=== PATIENT | male | born 1950 | race Caucasian/White ===

== ENCOUNTER → 2018-01-18 14:38 | Outpatient (CLI) | payer MEDICARE, BC, SELFPAY ==
[2018-01-18 15:26] LABS: Add Manual Diff / Slide Review NO; Basophils Percent Auto 0.3 % (0-2); Eosinophils Percent Auto 0.4 % (2-4); Hematocrit 45.2 % (41-53); Lymphocytes Percent Auto 19.1 % (25-40); Mean Corpuscular HGB Conc 33.1 % (30-36); Mean Corpuscular Hemoglobin 28.1 PG (26-34); Mean Corpuscular Volume 84.9 fL (80-100); Monocytes Percent Auto 8.9 % (3-14); Neutrophils Absolute Auto 5700 /uL (3000-5900); Neutrophils Percent Auto 71.3 % (50-75); Platelet Count 505 X10^3/uL (150-400); Red Blood Cell Count 5.32 X10^6/uL (4.5-5.9); Red Cell Distribution Width 17.2 % (11.6-14.8)
[2018-01-18 15:43] LABS: Alanine Aminotransferase 58 IU/L (21-72); Albumin 4.6 g/dL (3.5-5.0); Albumin Globulin Ratio 1.1 (1.0-2.8); Alkaline Phosphatase 102 U/L (38-126); Aspartate Aminotransferase 71 IU/L (17-59); BUN Creatinine Ratio 24.4 (6-22); Bilirubin Total 0.6 mg/dL (0.2-1.3); Blood Urea Nitrogen 22 mg/dL (9-20); Calcium 9.2 mg/dL (8.4-10.2); Carbon Dioxide 32 mmol/L (22-32); Chloride 97 mmol/L (98-107); Estimated Glomerular Filt Rate > 60.0 mL/min (>60); Globulin 4.3 g/dL (1.7-4.1); Glucose 114 mg/dL (80-110); HEMOLYSIS 20 (0-50); Potassium 4.1 mmol/L (3.4-5.1); Sodium 143 mmol/L (137-145); Total Protein 8.9 g/dL (6.3-8.2)
[2018-01-18 16:13] LABS: Thyroid Stimulating Hormone 2.92 uIU/mL (0.47-4.68)
== END ==
PROVIDERS: PCP Internal Medicine; Visit Provider Internal Medicine Medical Oncology
DX: C64.9 Malignant neoplasm of unspecified kidney, except renal pelvis (principal)
CPT/HCPCS: 36415; 80053; 84443; 85025

== ENCOUNTER → 2018-03-29 13:40 | Outpatient (CLI) | payer MEDICARE, BC, SELFPAY ==
--- NOTE | 2018-03-29 | DI.CT.S_ITS ---
PROCEDURE: CT CHEST WO CON INDICATIONS: Malignant neoplasm of unspecified kidney, except r TECHNIQUE: Noncontrast 5 mm thick sections acquired from the pulmonary apices to the posterior costophrenic angles. 7 mm thick coronal and sagittal MIP reformats were then acquired. For radiation dose reduction, the following was used: automated exposure control, adjustment of mA and/or kV according to patient size. COMPARISON: [facility], MR, ABDOMEN WITHOUT, 04/12/2011, 19:49. [facility], CT, THORAX WITHOUT CONTRAST, 03/30/2011, 8:18. FINDINGS: Image quality: Excellent. Lungs and pleura: There is a new large right pleural effusion. No pneumothorax. There is significant right lung volume loss. There is a 66 mm diameter mass within the right mid/lower medially. Within the right mid lung, there is a perihilar 63 mm diameter mass. Previously seen left apical mass has increased in size, currently measuring 32 mm diameter. A few smaller left lung nodules are present. Central and peripheral airways are patent and normal in caliber. Mediastinum: Heart size is normal. No pericardial effusion. 14 mm short axis prevascular adenopathy. 19 mm short axis right hilar adenopathy. Thoracic aorta and central pulmonary arteries are normal in size. Esophagus is normal in caliber. No hiatal hernia. Bones and chest wall: No suspicious bony lesions. No vertebral body compression fractures. No axillary or supraclavicular adenopathy by size criteria. Thyroid gland is within normal limits. Abdomen: Visualized portions of the upper abdomen demonstrate multiple surgical clips adjacent to the superior pole left kidney, as well as several calcific mass is adjacent to the remaining superior pole left kidney spanning roughly 16 mm. IMPRESSION: 1. Progressive bilateral right greater than left pulmonary masses. 2. Large right pleural effusion. 3. Progressive mediastinal and right hilar adenopathy. 4. Status post presumed left superior pole renal wedge resection. Multiple calcific masses adjacent to the remaining left kidney are present, which may represent postsurgical sequelae, or recurrent neoplasm. Dictated by: Mónica Hernández M.D. on 03/29/2018 at 14:03 Approved by: Mónica Hernández M.D. on 03/29/2018 at 14:09
== END ==
PROVIDERS: Family Provider Internal Medicine; PCP Internal Medicine; Visit Provider Internal Medicine Medical Oncology
DX: C64.9 Malignant neoplasm of unspecified kidney, except renal pelvis (principal); R91.8 Other nonspecific abnormal finding of lung field; J90 Pleural effusion, not elsewhere classified; R59.0 Localized enlarged lymph nodes
CPT/HCPCS: 71250

== ENCOUNTER → 2018-04-04 12:49 | Outpatient (CLI) | payer MEDICARE, BC, SELFPAY ==
--- NOTE | 2018-04-04 | DI.RAD.S_ITS ---
PROCEDURE: XR CHEST 2V INDICATIONS: Followup right pleural effusion. TECHNIQUE: 2 views of the chest were acquired. COMPARISON: [facility], CT, BIOPSY LUNG, 04/14/2011, 9:48. [facility], CR, CHEST 1 VIEW, 04/14/2011, 13:41. [facility], CT, CT CHEST WO CON, 03/29/2018, 13:46. FINDINGS: Surgical changes and devices: None. Lungs and pleura: There is moderate right pleural effusion, minimally changed from 03/29/2018. Right lung opacities in right upper lobe are suspicious for masses, pneumonia or atelectasis. No pneumothorax. Mediastinum: Mediastinal contours are normal. Heart size is normal. Bones and chest wall: No suspicious bony abnormalities. Soft tissues appear unremarkable. IMPRESSION: 1. Stable moderate-sized right effusion. 2. Right lung opacities may be masses, pneumonia or atelectasis Dictated by: Elizabeth Arevalo M.D. on 04/04/2018 at 15:37 Approved by: Elizabeth Arevalo M.D. on 04/04/2018 at 15:41
== END ==
PROVIDERS: Family Provider Internal Medicine; PCP Internal Medicine; Visit Provider Internal Medicine Medical Oncology
DX: J90 Pleural effusion, not elsewhere classified (principal)
CPT/HCPCS: 71046

== ENCOUNTER → 2018-04-10 12:40 | Outpatient (CLI) | payer MEDICARE, BC, SELFPAY ==
--- NOTE | 2018-04-10 | DI.RAD.S_ITS ---
PROCEDURE: XR CHEST 1V INDICATIONS: post thorocentesis TECHNIQUE: One view of the chest was acquired. COMPARISON: [facility], CR, XR CHEST 2V, 04/04/2018, 12:35. FINDINGS: Surgical changes and devices: None. Lungs and pleura: Residual moderate right pleural effusion is seen with loculated appearance. There is adjacent atelectasis. Left lung appears grossly clear. No pneumothorax Mediastinum: Mediastinal contours appear normal. Heart size is normal. Bones and chest wall: No suspicious bony lesions. Overlying soft tissues appear unremarkable. Scoliosis is noted. Bilateral shoulder joint degeneration. IMPRESSION: No pneumothorax status post right-sided thoracentesis. Dictated by: Landon Martinez M.D. on 04/10/2018 at 17:12 Approved by: Landon Martinez M.D. on 04/10/2018 at 17:13
--- NOTE | 2018-04-10 | DI.US.S_ITS ---
PROCEDURE: US THORACENTESIS INDICATIONS: RIGHT PLEURAL EFFUSION TECHNIQUE: The indications, alternatives, benefits, risks, and complications of the procedure were explained to the patient. Written informed consent was obtained and placed in the chart. The chest was examined sonographically, and an appropriate site was chosen for thoracentesis. The skin was prepared and draped in the usual sterile fashion, and 1% lidocaine was infiltrated from the skin down through the pleural surface. A 19-gauge catheter-covered needle was then introduced into the pleural space, the catheter was advanced and the needle was withdrawn, and thereafter pleural fluid was aspirated. The catheter was then removed and a dressing was applied. COMPARISON: None. FINDINGS: Access site: Right hemithorax. Needle: One-Step centesis catheter with introducer needle. Fluid volume and description: 1800 cc of serosanguineous fluid was obtained Fluid sent for diagnostic testing: Not requested Medications: 1% lidocaine for local anaesthesia. Complications: None; post-procedural chest radiograph is pending to assess for pneumothorax. IMPRESSION: Successful ultrasound-guided thoracentesis. Dictated by: Landon Martinez M.D. on 04/10/2018 at 17:25 Approved by: Landon Martinez M.D. on 04/10/2018 at 17:26
== END ==
PROVIDERS: Family Provider Internal Medicine; PCP Internal Medicine; Visit Provider Nurse Practitioner Family
DX: J90 Pleural effusion, not elsewhere classified (principal)
CPT/HCPCS: 32555; 71045

== ENCOUNTER → 2018-04-18 10:05 | Outpatient (CLI) | payer MEDICARE, BC, SELFPAY ==
--- NOTE | 2018-04-18 | DI.RAD.S_ITS ---
PROCEDURE: XR CHEST 1V INDICATIONS: POST THORACENTESIS TECHNIQUE: One view of the chest was acquired. COMPARISON right upper lobe. [facility], CT, CT CHEST WO CON, 03/29/2018, 13:46. [facility], CR, XR CHEST 1V, 04/10/2018, 15:10. FINDINGS: Surgical changes and devices: None. Lungs and pleura: No pneumothorax. There is moderate residual right pleural effusion. Right basilar consolidation or atelectasis. A nodular density is noted in the right upper lung zone. Mediastinum: Mediastinal contours appear normal. Heart size is normal. Bones and chest wall: No suspicious bony lesions. Overlying soft tissues appear unremarkable. IMPRESSION: No pneumothorax post thoracentesis. Dictated by: Elizabeth Arevalo M.D. on 04/18/2018 at 12:52 Approved by: Elizabeth Arevalo M.D. on 04/18/2018 at 12:54
--- NOTE | 2018-04-18 | DI.US.S_ITS ---
PROCEDURE: US THORACENTESIS INDICATIONS: RIGHT PLEURAL EFFUSION TECHNIQUE: The indications, alternatives, benefits, risks, and complications of the procedure were explained to the patient. Written informed consent was obtained and placed in the chart. The chest was examined sonographically, and an appropriate site was chosen for thoracentesis. The skin was prepared and draped in the usual sterile fashion, and 1% lidocaine was infiltrated from the skin down through the pleural surface. A 19-gauge catheter-covered needle was then introduced into the pleural space, the catheter was advanced and the needle was withdrawn, and thereafter pleural fluid was aspirated. The catheter was then removed and a dressing was applied. COMPARISON: [facility], THORACENTESIS, 04/10/2018, 14:35. FINDINGS: Access site: Right hemithorax. Needle: One-Step centesis catheter with introducer needle. Fluid volume and description: 1850 mL, bloody Fluid sent for diagnostic testing: not requested. Medications: 1% lidocaine for local anaesthesia. Complications: None; post-procedural chest radiograph is pending to assess for pneumothorax. IMPRESSION: Successful ultrasound-guided thoracentesis. Dictated by: Elizabeth Arevalo M.D. on 04/18/2018 at 15:35 Approved by: Elizabeth Arevalo M.D. on 04/18/2018 at 15:36
== END ==
PROVIDERS: Family Provider Internal Medicine; PCP Internal Medicine; Visit Provider Physician Assistant Medical
DX: J90 Pleural effusion, not elsewhere classified (principal)
CPT/HCPCS: 32555; 71045

== ENCOUNTER → 2018-04-25 10:11 | Outpatient (CLI) | payer MEDICARE, BC, SELFPAY ==
--- NOTE | 2018-04-25 | DI.US.S_ITS ---
PROCEDURE: US THORACENTESIS INDICATIONS: RIGHT PLEURAL EFFUSION TECHNIQUE: The indications, alternatives, benefits, risks, and complications of the procedure were explained to the patient. Written informed consent was obtained and placed in the chart. The chest was examined sonographically, and an appropriate site was chosen for thoracentesis. The skin was prepared and draped in the usual sterile fashion, and 1% lidocaine was infiltrated from the skin down through the pleural surface. A 19-gauge catheter-covered needle was then introduced into the pleural space, the catheter was advanced and the needle was withdrawn, and thereafter pleural fluid was aspirated. The catheter was then removed and a dressing was applied. COMPARISON: [facility], THORACENTESIS, 04/10/2018, 14:35. FINDINGS: Access site: Right hemithorax. Needle: One-Step centesis catheter with introducer needle. Fluid volume and description: 1400 mL, blood-tinged. Fluid sent for diagnostic testing: Not requested. Medications: 1% lidocaine for local anaesthesia. Complications: None; post-procedural chest radiograph is pending to assess for pneumothorax. IMPRESSION: Successful ultrasound-guided thoracentesis. Dictated by: Elizabeth Arevalo M.D. on 04/25/2018 at 11:16 Approved by: Elizabeth Arevalo M.D. on 04/25/2018 at 11:17
--- NOTE | 2018-04-25 | DI.RAD.S_ITS ---
PROCEDURE: XR CHEST 1V INDICATIONS: POST THORACENTEIS TECHNIQUE: One view of the chest was acquired. COMPARISON: [facility], CT, THORAX WITHOUT CONTRAST, 03/30/2011, 8:18. [facility], CR, CHEST 1 VIEW, 04/14/2011, 13:41. [facility], CT, CT CHEST WO CON, 03/29/2018, 13:46. [facility], CR, XR CHEST 1V, 04/10/2018, 15:10. [facility], CR, XR CHEST 1V, 04/18/2018, 10:57. FINDINGS: Surgical changes and devices: None. Lungs and pleura: There is a small to moderate residual right pleural effusion. No pneumothorax. Again noted are masslike opacity in the right upper lobe. Mediastinum: Mediastinal contours appear normal. Heart size is normal. Bones and chest wall: No suspicious bony lesions. Overlying soft tissues appear unremarkable. IMPRESSION: No pneumothorax post thoracentesis. Dictated by: Elizabeth Arevalo M.D. on 04/25/2018 at 11:45 Approved by: Elizabeth Arevalo M.D. on 04/25/2018 at 11:46
== END ==
PROVIDERS: Family Provider Internal Medicine; PCP Internal Medicine; Visit Provider Internal Medicine Medical Oncology
DX: J90 Pleural effusion, not elsewhere classified (principal)
CPT/HCPCS: 32555; 71045

== ENCOUNTER → 2018-05-18 09:32 | Outpatient (CLI) | payer MEDICARE, BC, SELFPAY ==
--- NOTE | 2018-05-18 | DI.RAD.S_ITS ---
PROCEDURE: XR CHEST 1V INDICATIONS: POST CHEST THORACENTESIS TECHNIQUE: One view of the chest was acquired. COMPARISON: [facility], , XR CHEST 1V, 04/25/2018, 10:43. FINDINGS: Surgical changes and devices: None. Lungs and pleura: No pleural effusions or pneumothorax. There is widespread right lung consolidation and [id number] pleural effusion which is unchanged since 04/25/18. Left lung appears clear. Mediastinum: Mediastinal contours appear normal. Heart size is normal. Bones and chest wall: Scoliosis and discogenic changes. Upper abdominal surgical clips. IMPRESSION: No pneumothorax, status post right thoracentesis. Dictated by: Landon Martinez M.D. on 05/18/2018 at 14:40 Approved by: Landon Martinez M.D. on 05/18/2018 at 14:41
--- NOTE | 2018-05-18 | DI.US.S_ITS ---
PROCEDURE: US THORACENTESIS INDICATIONS: RIGHT PLEURAL EFFUSION TECHNIQUE: The indications, alternatives, benefits, risks, and complications of the procedure were explained to the patient. Written informed consent was obtained and placed in the chart. The chest was examined sonographically, and an appropriate site was chosen for thoracentesis. The skin was prepared and draped in the usual sterile fashion, and 1% lidocaine was infiltrated from the skin down through the pleural surface. A 19-gauge catheter-covered needle was then introduced into the pleural space, the catheter was advanced and the needle was withdrawn, and thereafter pleural fluid was aspirated. The catheter was then removed and a dressing was applied. COMPARISON: [facility], THORACENTESIS, 04/25/2018, 10:35. FINDINGS: Access site: Right hemithorax. Needle: One-Step centesis catheter with introducer needle. Fluid volume and description: 1050 cc of serous fluid was obtained Fluid sent for diagnostic testing: Not requested Medications: 1% lidocaine for local anaesthesia. Complications: None; post-procedural chest radiograph is pending to assess for pneumothorax. IMPRESSION: Successful ultrasound-guided thoracentesis. Dictated by: Landon Martinez M.D. on 05/18/2018 at 16:36 Approved by: Landon Martinez M.D. on 05/18/2018 at 16:36
[2018-05-18 10:07] LABS: Platelet Count 312 X10^3/uL (150-400)
[2018-05-18 10:14] LABS: INR 1.2 (0.9-1.3); Prothrombin Time 13.2 SECONDS (10.1-12.7)
== END ==
PROVIDERS: Family Provider Internal Medicine Medical Oncology; PCP Internal Medicine; Visit Provider Physician Assistant Medical
DX: J90 Pleural effusion, not elsewhere classified (principal)
CPT/HCPCS: 32555; 36415; 71045; 85049; 85610

== ENCOUNTER → 2018-06-06 12:45 | Outpatient (CLI) | payer MEDICARE, BC, SELFPAY ==
--- NOTE | 2018-06-06 | DI.US.S_ITS ---
PROCEDURE: US THORACENTESIS INDICATIONS: RIGHT PLEURAL EFFUSION TECHNIQUE: The indications, alternatives, benefits, risks, and complications of the procedure were explained to the patient. Written informed consent was obtained and placed in the chart. The chest was examined sonographically, and an appropriate site was chosen for thoracentesis. The skin was prepared and draped in the usual sterile fashion, and 1% lidocaine was infiltrated from the skin down through the pleural surface. A 19-gauge catheter-covered needle was then introduced into the pleural space, the catheter was advanced and the needle was withdrawn, and thereafter pleural fluid was aspirated. The catheter was then removed and a dressing was applied. COMPARISON: [facility], THORACENTESIS, 04/18/2018, 10:25. [facility], THORACENTESIS, 04/10/2018, 14:35. [facility], THORACENTESIS, 05/18/2018, 10:45. [facility], , XR CHEST 1V, 05/18/2018, 11:09. [facility], XR CHEST 1V, 04/25/2018, 10:43. [facility], THORACENTESIS, 04/25/2018, 10:35. FINDINGS: Access site: right hemithorax. Needle: One-Step centesis catheter with introducer needle. Fluid volume and description: Right pleural effusion is loculated on ultrasound. ~250 mL, pinkish. Fluid sent for diagnostic testing: not requested. Medications: 1% lidocaine for local anaesthesia. Complications: None; post-procedural chest radiograph is pending to assess for pneumothorax. IMPRESSION: 1. Ultrasound-guided thoracentesis is successful. There is decreased volume of pleural fluid removal due to loculation. The effectiveness of repeat thoracentesis may have limited due to loculation. Dictated by: Elizabeth Arevalo M.D. on 06/06/2018 at 15:20 Approved by: Elizabeth Arevalo M.D. on 06/06/2018 at 15:26
--- NOTE | 2018-06-06 | DI.RAD.S_ITS ---
PROCEDURE: XR CHEST 1V INDICATIONS: POST THORACENTESIS TECHNIQUE: One view of the chest was acquired. COMPARISON: [facility], CR, XR CHEST 2V, 04/04/2018, 12:35. [facility], CR, XR CHEST 1V, 04/10/2018, 15:10. [facility], CR, XR CHEST 1V, 04/18/2018, 10:57. [facility], CR, XR CHEST 1V, 04/25/2018, 10:43. [facility], US, US THORACENTESIS, 06/06/2018, 12:55. [facility], CT, CT CHEST WO CON, 03/29/2018, 13:46. [facility], CR, XR CHEST 1V, 05/18/2018, 11:09. FINDINGS: Surgical changes and devices: None. Lungs and pleura: The right hemithorax is near entirely opacified likely secondary to large. right pleural effusions. A small hydropneumothorax component at the right base. There is a pleural-based density in the left upper thorax. Left lungs is otherwise clear. Mediastinum: Mediastinal contours appear normal. Heart size is normal. Bones and chest wall: No suspicious bony lesions. Overlying soft tissues appear unremarkable. IMPRESSION: 1. Persistent large right effusion and a small hydropneumothorax component in the right lung base. No evidence for tension pneumothorax. I discussed with the patient and his caregiver that if he develops shortness of breath, he is advised to come to the ER immediately. The patient lives a short distance from the hospital. He appears to be in his usual condision. He is discharged from the hospital in stable condition. Dictated by: Elizabeth Arevalo M.D. on 06/06/2018 at 13:48 Transcribed by: RICHARD on 06/06/2018 at 13:53 Approved by: Elizabeth Arevalo M.D. on 06/06/2018 at 14:05
== END ==
PROVIDERS: Family Provider Internal Medicine Medical Oncology; PCP Internal Medicine; Visit Provider Physician Assistant Medical
DX: J90 Pleural effusion, not elsewhere classified (principal)
CPT/HCPCS: 32555; 71045

== ENCOUNTER → 2018-06-22 09:03 | Outpatient (CLI) | payer MEDICARE, BC, SELFPAY ==
--- NOTE | 2018-06-22 | DI.US.S_ITS ---
PROCEDURE: US CHEST COMPARISON: [facility], [facility], CT THORAX/ABDOMEN/PELVIS WITH CONTRAST, 06/14/2018, 10:32. [facility], CR, XR CHEST 1V, 06/06/2018, 13:36. [facility], US, US THORACENTESIS, 06/06/2018, 12:55. [facility], CR, XR CHEST 1V, 05/18/2018, 11:09. [facility], US, US THORACENTESIS, 05/18/2018, 10:45. [facility], CR, XR CHEST 1V, 04/25/2018, 10:43. [facility], , US THORACENTESIS, 04/25/2018, 10:35. INDICATIONS: RIGHT PLEURAL EFFUSION FINDINGS: Patient was initially scheduled for an ultrasound-guided thoracentesis for drainage of a known right complex malignant pleural effusion. Preprocedural ultrasound of the right hemithorax demonstrates a multiloculated fluid collection with echogenic septations at the right lung base extending to the right hemidiaphragm. These echogenic septations are increased from comparison preprocedural thoracentesis ultrasound of 06/06/18 and are not as detectable on comparison CT of the thorax, abdomen, and pelvis of 06/14/18. Patient states that he did not experience any significant improvement in respiratory status after his prior ultrasound-guided thoracentesis of 06/06/18 (where 250 mL of fluid was removed). There has been a decreasing trend in volume of right pleural fluid removed, with 1400 mL of fluid removed on 04/25/18, 1050 mL of fluid removed on 05/18/18, and 250 mL of fluid removed on 06/06/2018. IMPRESSION: Increasing loculation/septation of the known complex malignant right pleural effusion. Given this increasing loculation, the amount of pleural fluid that could be removed by thoracentesis is likely similar to the volume removed on most recent prior thoracentesis of 06/06/18. These findings were discussed with the patient at the time of the exam. The patient states he did not experience any significant improvement in respiratory status after the thoracentesis of 06/06/18. As such, the patient chooses to defer ultrasound guided thoracentesis at this time. Patient is scheduled for a followup ultrasound guided thoracentesis at this location on 06/26/18, at which time the pleural fluid collection will be reevaluated for potential thoracentesis. Dictated by: Pipe Quigley M.D. on 06/22/2018 at 12:08 Approved by: Pipe Quigley M.D. on 06/22/2018 at 12:22
[2018-06-22 09:50] LABS: INR 1.3 (0.9-1.3); Prothrombin Time 13.9 SECONDS (10.1-12.7)
[2018-06-22 09:51] LABS: Platelet Count 322 X10^3/uL (150-400)
== END ==
PROVIDERS: Family Provider Internal Medicine Medical Oncology; PCP Internal Medicine; Visit Provider Physician Assistant Medical
DX: C64.9 Malignant neoplasm of unspecified kidney, except renal pelvis (principal); J91.0 Malignant pleural effusion
CPT/HCPCS: 36415; 76604; 85049; 85610

== ENCOUNTER → 2018-07-03 07:47 | Outpatient (CLI) | payer MEDICARE, BC, SELFPAY ==
--- NOTE | 2018-07-03 | DI.US.S_ITS ---
PROCEDURE: US CHEST COMPARISON: [facility] Facility, RG, CT THORAX/ABDOMEN/PELVIS WITH CONTRAST, 06/14/2018, 10:32. [facility], CR, XR CHEST 1V, 06/06/2018, 13:36. [facility], US, US CHEST, 06/22/2018, 10:15. INDICATIONS: RIGHT PLEURAL EFFUSION FINDINGS: Multiloculated, honeycombed right pleural effusion redemonstrated. IMPRESSION: Multiloculated, honeycombed right effusion and no thoracentesis was performed. Dictated by: Alexandr Encinas RRA Interpreted: Clarice Piña MD on 07/03/2018 at 9:42 Approved by: Clarice Piña MD, PhD on 07/03/2018 at 13:09
== END ==
PROVIDERS: Family Provider Internal Medicine Medical Oncology; PCP Internal Medicine; Visit Provider Physician Assistant Medical
DX: J90 Pleural effusion, not elsewhere classified (principal)
CPT/HCPCS: 76604

== ENCOUNTER → 2018-07-14 14:10 | Outpatient (CLI) | payer MEDICARE, BC, SELFPAY ==
[2018-07-14 14:38] VITALS: BP 144/61; PULSE 64; RESP 16; TEMP 36.8
[2018-07-14] MEDS: DENOSUMAB 120 MG/1.7 ML VIAL SUBCUT (14:45)
== END ==
PROVIDERS: Family Provider Internal Medicine Medical Oncology; PCP Internal Medicine; Visit Provider Physician Assistant Medical
DX: C64.9 Malignant neoplasm of unspecified kidney, except renal pelvis (principal); C78.00 Secondary malignant neoplasm of unspecified lung; C79.51 Secondary malignant neoplasm of bone
CPT/HCPCS: 96372; J0897

== ENCOUNTER → 2018-08-22 09:51 | Outpatient (CLI) | payer MEDICARE, BC, SELFPAY ==
[2018-08-22 10:45] LABS: Add Manual Diff / Slide Review NO; Basophils Absolute Auto 0 /uL (0-100); Basophils Percent Auto 0.3 % (0-2); Eosinophils Absolute Auto 0 /uL (0-450); Eosinophils Percent Auto 0.7 % (2-4); Hemoglobin 14.9 g/dL (13.5-17.5); Lymphocytes Absolute Auto 1200 /uL (1100-4500); Lymphocytes Percent Auto 23.4 % (25-40); Mean Corpuscular HGB Conc 32.5 % (30-36); Mean Corpuscular Hemoglobin 28.8 PG (26-34); Mean Corpuscular Volume 88.6 fL (80-100); Monocytes Absolute Auto 400 /uL (0-900); Monocytes Percent Auto 7.8 % (3-14); Neutrophils Absolute Auto 3600 /uL (1500-7000); Neutrophils Percent Auto 67.8 % (50-75); Platelet Count 273 X10^3/uL (150-400); Red Blood Cell Count 5.19 X10^6/uL (4.5-5.9); Red Cell Distribution Width 24.5 % (11.6-14.8); White Blood Cell Count 5.3 X10^3/uL (4.5-11.0)
[2018-08-22 11:12] LABS: Alanine Aminotransferase 22 IU/L (21-72); Albumin 4.1 g/dL (3.5-5.0); Albumin Globulin Ratio 1.1 (1.0-2.8); Alkaline Phosphatase 90 U/L (38-126); Aspartate Aminotransferase 35 IU/L (17-59); BUN Creatinine Ratio 25.6 (6-22); Bilirubin Total 0.7 mg/dL (0.2-1.3); Blood Urea Nitrogen 23 mg/dL (9-20); Calcium 9.3 mg/dL (8.4-10.2); Carbon Dioxide 35 mmol/L (22-32); Chloride 97 mmol/L (98-107); Estimated Glomerular Filt Rate > 60.0 mL/min (>60); Globulin 3.6 g/dL (1.7-4.1); Glucose 140 mg/dL (80-110); HEMOLYSIS 16 (0-50); Potassium 3.9 mmol/L (3.4-5.1); Sodium 140 mmol/L (137-145); Total Protein 7.7 g/dL (6.3-8.2)
[2018-08-22 11:26] LABS: Anisocytosis 2+
== END ==
PROVIDERS: PCP Internal Medicine; Visit Provider Internal Medicine Medical Oncology
DX: C64.9 Malignant neoplasm of unspecified kidney, except renal pelvis (principal)
CPT/HCPCS: 36415; 80053; 85025

== ENCOUNTER → 2019-01-08 13:00 | Oncology outpatient (ONC) | payer MEDICARE, BC, SELFPAY ==
[2018-01-20 14:47] VITALS: BP 144/78; PULSE 60; RESP 18; TEMP 36.3; O2SAT 98
[2018-01-20] MEDS: DENOSUMAB 120 MG/1.7 ML VIAL SUBCUT (14:56)
[2018-08-30] MEDS: DENOSUMAB 120 MG/1.7 ML VIAL SUBCUT (14:41)
[2018-10-23 15:53] VITALS: BP 133/65; PULSE 59; RESP 16; TEMP 36.3; O2SAT 98
[2018-10-23] MEDS: DENOSUMAB 120 MG/1.7 ML VIAL SUBCUT (15:53)
[2019-01-08] MEDS: DENOSUMAB 120 MG/1.7 ML VIAL SUBCUT (13:52)
[2019-01-08 14:03] VITALS: BP 117/61; PULSE 65; RESP 18; TEMP 37
--- NOTE | 2019-01-08 14:04 | PC.NURSE ---
Pt seen in clinic for injection. Denies chest pain and SOB. Denies n/v. Reports good appetite. No s/s of acute distress noted.
== END ==
PROVIDERS: PCP Internal Medicine; Referring Provider Internal Medicine Medical Oncology; Visit Provider Internal Medicine Medical Oncology
DX: C64.9 Malignant neoplasm of unspecified kidney, except renal pelvis (principal)
CPT/HCPCS: 96372; J0897